=== PATIENT | female | born 2000 | race Caucasian/White ===

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

== ENCOUNTER 2020-01-14 02:01 | Outpatient (CLI) | payer MEDICAID | END 2020-01-14 02:02 | disposition EMS.NT | LOC: EMS 02:01 | PROVIDERS: ATTEND Surgery | DX: R51 Headache (principal); R06.9 Unspecified abnormalities of breathing ==

== ENCOUNTER 2020-05-11 09:03 | Outpatient (CLI) | payer MEDICAID ==
--- NOTE | 2020-05-12 08:52 | XRAY Report ---
PROCEDURE: Chest 2 View X-Ray INDICATIONS: Chest wall pain TECHNIQUE: 2 view(s) of the chest. COMPARISON: None. FINDINGS: Surgical changes and devices: None. Lungs and pleura: No pleural effusions or pneumothorax. Lungs are clear. Mediastinum: Mediastinal contours are normal. Heart size is normal. Bones and chest wall: No suspicious bony abnormalities. S-shaped scoliosis in the thoracic and lumba r spine. IMPRESSION: No acute cardiopulmonary process. Reviewed by: Bin Thornton MD on 05/11/2020 9:58 AM PDT Approved by: Bin Thornton MD on 05/11/2020 9:58 AM PDT Station ID: [id number]
== END 2020-05-11 09:04 | disposition home or self-care (01) ==
LOC: DI.WCP 09:03
PROVIDERS: ATTEND Family Medicine
DX: R07.89 Other chest pain (principal)
CPT/HCPCS: 71046

== ENCOUNTER 2020-09-28 16:25 | Outpatient (CLI) | payer MEDICAID | END 2020-09-28 23:59 | disposition home or self-care (01) | LOC: LAB.N 16:25 | PROVIDERS: ATTEND Family Medicine | DX: R05 Cough (principal); Z20.828 Contact with and (suspected) exposure to other viral communicable diseases | CPT/HCPCS: 87275; 87276 ==

== ENCOUNTER 2020-10-19 10:54 | Outpatient (CLI) | payer MEDICAID ==
--- NOTE | 2020-10-19 17:19 | XRAY Report ---
PROCEDURE: Spine Scoliosis Study 2-3V INDICATIONS: SCOLIOSIS TECHNIQUE: Frontal and lateral standing views of the spine acquired. COMPARISON: None. FINDINGS: There is rightward curvature of the thoracic spine measuring approximately 25 degrees. Bone morphology: No developmental anomalies of the ribs or spine. 12 pairs of ribs are noted. 5 no nrib-bearing lumbar vertebrae are present. No suspicious bony lesions. IMPRESSION: Rightward thoracic curvature as above. Reviewed by: Ibeth Peoples MD on 10/19/2020 5:17 PM [facility] Approved by: Ibeth Peoples MD on 10/19/2020 5:17 PM [facility] Station ID: [id number]
== END 2020-10-19 10:55 | disposition home or self-care (01) ==
LOC: DI 10:54
PROVIDERS: ATTEND Physician Assistant
DX: M41.9 Scoliosis, unspecified (principal)

== ENCOUNTER 2020-12-11 10:04 | Emergency (ER) | payer MEDICAID ==
[2020-12-11 10:10] VITALS: BP 118/68
--- NOTE | 2020-12-11 10:15 | ED Physician Documentation ---
PD HPI OPHTHO - Stated complaint Stated Complaint: LT EYE SWELLING - Chief complaint Chief Complaint: Heent - History obtained from History obtained from: Patient - History of Present Illness Timing - onset: How many days ago (2) Timing - duration: Days (2) Timing - details: Gradual onset, Still present (worse today despite doing warm moist compresses.) Location: Left (upper eyelid) Associated symptoms: Redness, Swelling. 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 : None HEENT: None Psych: Depression, Anxiety Musculoskeletal: Scoliosis Derm: None - Past Surgical History Past Surgical History: No - Present Medications Home Medications: Ambulatory Orders Medication Instructions Recorded Confirmed Amitriptyline [Elavil] 1 tab PO DAILY 12/11/20 12/11/20 Aripiprazole [Abilify] 1 tab PO DAILY 12/11/20 12/11/20 Doxycycline Hyclate 100 mg PO BID #10 12/11/20 Erythromycin Base [Erythromycin 1 applic OP QID #3.5 gm 12/11/20 Ophthalmic Ointment] - Allergies Allergies/Adverse Reactions: Allergies Allergy/AdvReac Type Severity Reaction Status Date / Time No Known Drug Allergies Allergy Verified 12/11/20 10:10 - Social History Does the pt smoke?: No Smoking Status: Never smoker Does the pt drink ETOH?: No Does the pt have substance abuse?: Yes - Immunizations Immunizations are current?: Yes - POLST Patient has POLST: No PD ED PE NORMAL - Vitals Vital signs reviewed: Yes - General General: Alert and oriented X 3, No acute distress, Well developed/nourished - HEENT HEENT: PERRL, EOMI (left upper eyelid with redness and swelling of much of the upper eyelid, with point of swelling at margin of lid. ), Ears normal, Moist mucous membranes, Pharynx benign - Neck Neck: Supple, no meningeal sign, No adenopathy - Cardiac Cardiac: RRR, No murmur Results - Vitals Vitals: Vital Signs - 24 hr 12/11/20 10:08 Temperature 36.1 C L Heart Rate 95 Respiratory 18 Rate Blood Pressure 118/68 O2 Saturation 100 Oxygen O2 Source Room air Departure - Departure Disposition: 01 Home, Self Care Clinical Impression: Hordeolum externum (stye) Qualifiers: Laterality: left Eyelid: upper Qualified Code(s): H00.014 - Hordeolum externum left upper eyelid Condition: Stable Record reviewed to determine appropriate education?: Yes Instructions: ED Hordeolum Follow-Up: RENÉE CHERRY PA-C [Primary Care Provider] - Prescriptions: Doxycycline Hyclate 100 mg PO BID #10 Erythromycin Base [Erythromycin Ophthalmic Ointment] 1 applic OP QID #3.5 gm Comments: Continue the warm compresses to promote drainage from the clogged gland. You can use the antibiotic ointment topically at the eyelid. Also oral antibiotic doxycycline twice daily. This should resolve over the next several days. Tylenol or ibuprofen if needed for pains. It is okay to resume work as this is not contagious like "pinkeye" but is more a contained gland infection. Forms: Activity restrictions Discharge Date/Time: 12/11/20 10:30
[2020-12-11] MEDS ORDERED: DOXYCYCLINE 100 MG TABLET PO STA (10:23)
[2020-12-11] MEDS ORDERED: ERYTHROMYCIN OPHTH OINT 1 GM TUBE LEFTEYE STA (10:23)
== END 2020-12-11 10:30 | disposition home or self-care (01) ==
LOC: ED 10:04
DX: H00.014 Hordeolum externum left upper eyelid (principal)
CPT/HCPCS: 99282; 99284; A9270; J3490

== ENCOUNTER 2022-07-24 16:01 | Emergency (ER) | payer OTHER, MEDICAID ==
--- NOTE | 2022-07-24 16:42 | ED Physician Documentation ---
PD HPI FEMALE - Stated complaint Stated Complaint: FEMALE - Chief complaint Chief Complaint: Abd Pain - History obtained from History obtained from: Patient - Additional information Additional information: Patient is a 22-year-old female presenting for evaluation of pelvic pain that is been intermittent over the past 2 weeks but recently worsening. It is located more to the right Pelvis. Nothing makes it better or worse. It is cramping and sharp in nature.She had an IUD placed in November. She did call her PCP today and they directed her to the emergency department regarding her pelvic pain.She has been spotting in the last few days. She has had intermittent periods since The IUD was placed. She has had some vaginal discharge but denies concerns for sexually transmitted infections.She also reports having mild epigastric pain. Review of Systems Constitutional: denies: Fever Nose: denies: Congestion Cardiac: denies: Chest pain / pressure Respiratory: denies: Dyspnea GI: reports: Abdominal Pain. 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 : None HEENT: None Psych: Depression, Anxiety Musculoskeletal: Scoliosis Derm: None - Past Surgical History Past Surgical History: No - Present Medications Home Medications: Ambulatory Orders Medication Instructions Recorded Confirmed Escitalopram [Lexapro] 10 mg PO DAILY 07/24/22 07/24/22 hydrOXYzine HCL [Hydroxyzine HCl] 25 mg PO DAILY PM 07/24/22 07/24/22 - Allergies Allergies/Adverse Reactions: Allergies Allergy/AdvReac Type Severity Reaction Status Date / Time No Known Drug Allergies Allergy Verified 07/24/22 16:18 - Social History Does the pt smoke?: No Smoking Status: Never smoker Does the pt drink ETOH?: No Does the pt have substance abuse?: Yes - Immunizations Immunizations are current?: Yes - POLST Patient has POLST: No PD ED PE NORMAL - General General: Alert and oriented X 3, No acute distress, Well developed/nourished - HEENT HEENT: Atraumatic, Moist mucous membranes - Neck Neck: Supple, no meningeal sign - Cardiac Cardiac: RRR, Strong equal pulses - Respiratory Respiratory: No respiratory distress, Clear bilaterally - Abdomen Abdomen: Normal bowel sounds, Soft, Non distended, Other (Mild epigastric tenderness) - Female Female : Clinical Project Assistant present (Leeann tach), Other (Normal external exam, normal-appearing cervix with small amount of clear/yellow vaginal discharge And blood coming from cervical os, IUD strings are visible extruding from the os, no CMT, mild right adnexal tenderness, no masses or fullness) - Derm Derm: Warm and dry - Extremities Extremities: No edema Results - Vitals Vitals: Vital Signs - 24 hr 07/24/22 07/24/22 16:11 18:07 Temperature 36.6 C 36.7 C Heart Rate 70 65 Respiratory 16 16 Rate Blood Pressure 127/79 117/74 O2 Saturation 100 100 Oxygen O2 Source Room air - Labs Labs: Laboratory Tests 07/24/22 07/24/22 07/24/22 16:00 16:40 16:40 WBC RBC Hgb Hct MCV MCH MCHC RDW Plt Count MPV Neut # (Auto) Lymph # (Auto) [place] # (Auto) Eos # (Auto) Baso # (Auto) Absolute Nucleated RBC Nucleated RBC % Sodium Potassium Chloride Carbon Dioxide Anion Gap BUN Creatinine Estimated GFR (MDRD) Glucose Calcium Total Bilirubin AST ALT Alkaline Phosphatase Total Protein Albumin Globulin Albumin/Globulin Ratio Lipase Urine Color YELLOW Urine Clarity CLEAR Urine pH 7.0 Ur Specific [place] 1.010 Urine Protein NEGATIVE Urine Glucose (UA) NEGATIVE Urine Ketones NEGATIVE Urine Occult Blood SMALL H Urine Nitrite NEGATIVE Urine Bilirubin NEGATIVE Urine Urobilinogen 0.2 (NORMAL) Ur Leukocyte Esterase NEGATIVE Urine RBC 6-10 H Urine WBC 0-3 Ur Squamous Epith Cells RARE Squamous Urine Bacteria Rare Urine Sperm PRESENT Ur Microscopic Review INDICATED Urine Culture Comments NOT INDICATED Urine HCG, Qual NEGATIVE C. glabrata (PCR) NEGATIVE C. krusei (PCR) NEGATIVE Mattie species DNA NEGATIVE Chlam trachomat DNA PCR NEGATIVE N.gonorrhoeae DNA (PCR) NEGATIVE T. vaginalis (PCR) NEGATIVE TNP Bact Vaginosis (PCR) NEGATIVE 07/24/22 07/24/22 16:50 16:50 WBC 5.7 RBC 4.24 Hgb 12.5 Hct 39.2 MCV 92.5 MCH 29.5 MCHC 31.9 L RDW 12.1 Plt Count 168 MPV 11.1 H Neut # (Auto) 3.1 Lymph # (Auto) 1.9 [place] # (Auto) 0.5 Eos # (Auto) 0.1 Baso # (Auto) 0.0 Absolute Nucleated RBC 0.00 Nucleated RBC % 0.0 Sodium 137 Potassium 3.9 Chloride 105 Carbon Dioxide 24 Anion Gap 8.0 BUN 13 Creatinine 0.6 Estimated GFR (MDRD) 125 Glucose 93 Calcium 9.6 Total Bilirubin 0.7 AST 15 ALT 13 Alkaline Phosphatase 68 Total Protein 7.4 Albumin 4.0 Globulin 3.4 Albumin/Globulin Ratio 1.2 Lipase 31 Urine Color Urine Clarity Urine pH Ur Specific [place] Urine Protein Urine Glucose (UA) Urine Ketones Urine Occult Blood Urine Nitrite Urine Bilirubin Urine Urobilinogen Ur Leukocyte Esterase Urine RBC Urine WBC Ur Squamous Epith Cells Urine Bacteria Urine Sperm Ur Microscopic Review Urine Culture Comments Urine HCG, Qual C. glabrata (PCR) C. krusei (PCR) Mattie species DNA Chlam trachomat DNA PCR N.gonorrhoeae DNA (PCR) T. vaginalis (PCR) Bact Vaginosis (PCR) PD MEDICAL DECISION MAKING - ED course Complexity details: reviewed results, re-evaluated patient, d/w patient ED course: Patient presenting for intermittent pelvic pain for the last 2 weeks. Overall her abdominal and pelvic exams are unremarkable with mild amount of tenderness i n the right adnexa but no masses or fullness.No CMT Or signs of PID.She is not and her urine appears negative for infection. Ultrasound was also obtained to evaluate her ovaries. There is no signs of torsion and the clinical suspicion is very low for torsion as she is very comfortable appearing. However there is a small right hemorrhagic cyst which I did discuss with the patient. She is aware of need for follow-up.Patient is aware that her vaginal swabs are pending and if they are abnormal I will notify her tomorrow. 1751 - Per U/S Tech - No torsion, patient has small right hemorrhagic cyst, IUD in position. Reviewed results with patient. Discussed need for follow-up regarding her cyst.She declined need for pain medication. Departure - Departure Disposition: 01 Home, Self Care Clinical Impression: Pelvic pain in female, Right ovarian cyst Condition: Stable Instructions: ED Cyst Ovarian Comments: You were evaluated For intermittent pelvic pain. Your IUD appears to be in place and I was able to see the strings from your cervix.Your labs are reassuring and your urine is negative for infection. Pelvic swabs were also obtained and are pending. We will notify you of any abnormalities.Your ultraso und shows a small right Ovarian cyst. I would recommend the use of anti- inflammatories such as ibuprofen as needed for pain. I would also recommend follow-up with your primary care doctor. If you have any worsening symptoms please consider return to the ER. Discharge Date/Time: 07/24/22 18:07
[2022-07-24 16:58] LABS: BASOPHILS % (AUTO) 0.5 %; EOSINOPHILS # (AUTO) 0.1 10^3/uL (0.0-0.7); EOSINOPHILS % (AUTO) 2.3 %; HCT - HEMATOCRIT 39.2 % (37.0-47.0); HGB - HEMOGLOBIN 12.5 g/dL (12.0-16.0); LYMPHOCYTES # (AUTO) 1.9 10^3/uL (1.5-3.5); LYMPHOCYTES % (AUTO) 33.7 %; MEAN CORPUSCULAR HEMOGLOBIN 29.5 pg (27.0-31.0); MEAN CORPUSCULAR HGB CONC 31.9 g/dL (32.0-36.0); MEAN CORPUSCULAR VOLUME 92.5 fL (81.0-99.0); MEAN PLATELET VOLUME 11.1 fL (7.9-10.8); MONOCYTES # (AUTO) 0.5 10^3/uL (0.0-1.0); MONOCYTES % (AUTO) 8.6 %; NEUTROPHILS # (AUTO) 3.1 10^3/uL (1.5-6.6); NEUTROPHILS % (AUTO) 54.7 %; PLT - PLATELET COUNT 168 10^3/uL (130-450); RED BLOOD COUNT 4.24 10^6/uL (4.20-5.40); RED CELL DISTRIBUTION WIDTH 12.1 % (12.0-15.0); WHITE BLOOD COUNT 5.7 x10^3/uL (4.8-10.8)
[2022-07-24 17:09] LABS: BILIRUBIN,URINE NEGATIVE (NEGATIVE); GLUCOSE, URINE (UA) NEGATIVE (NEGATIVE); KETONES,URINE (UA) NEGATIVE (NEGATIVE); LEUKOCYTE ESTERASE, URINE NEGATIVE (NEGATIVE); NITRITE,URINE NEGATIVE (NEGATIVE); OCCULT BLOOD,URINE SMALL (NEGATIVE); PROTEIN,URINE NEGATIVE (NEGATIVE); UROBILINOGEN,URINE 0.2 (NORMAL) E.U./dL (NORMAL)
[2022-07-24 17:11] LABS: CLARITY,URINE CLEAR (CLEAR)
[2022-07-24 17:12] LABS: HCG UR QUAL NEGATIVE
[2022-07-24 17:13] LABS: ALBUMIN/GLOBULIN RATIO 1.2 (1.0-2.2); BILIRUBIN,TOTAL 0.7 mg/dL (0.2-1.0); CALCIUM 9.6 mg/dL (8.5-10.3); CREATININE 0.6 mg/dL (0.4-1.0); POTASSIUM 3.9 mmol/L (3.5-5.0); TOTAL PROTEIN 7.4 g/dL (6.7-8.2)
[2022-07-24 17:17] LABS: BACTERIA,URINE Rare /HPF (None Seen); SQUAMOUS EPITHELIAL CELL,UR RARE Squamous (<= Few); WBC,URINE 0-3 /HPF (0-5)
[2022-07-24 17:18] LABS: SPERM,URINE PRESENT
[2022-07-24 18:09] VITALS: BP 117/74
--- NOTE | 2022-07-24 18:37 | Ultrasound Report ---
PROCEDURE: Pelvic w/Doppler Limited INDICATIONS: Right adnexal pain TECHNIQUE: Real-time transabdominal scanning was performed of the pelvic organs, with image documentation. Dopp ler interrogation was performed of the ovaries bilaterally. COMPARISON: None. FINDINGS: Uterus: Uterus is anteverted and normal in size at 7.7 x 3.0 x 4.6 cm. Endometrium measures 5 mm in combined thickness. An IUD is visualized within the endometrial cavity. Ovaries: Right ovary measures 3.0 x 1.9 x 3.9 cm. Right ovarian volume measures 11.8 mL. There is a corticated right ovarian cyst measuring 2.3 x 1.2 x 2.5 cm left ovary measures 2.1 x 1.7 x 2.2 cm wit h ovarian volume of 4.1 mL. Normal appearing arterial and venous waveforms are confirmed to each ovar y.] Normal vascular waveforms are noted in the bilateral ovaries. Other: No free pelvic fluid. IMPRESSION: Pelvic ultrasound without evidence for ovarian torsion. Intrauterine device visualized within the endometrial cavity. A 2.5cm, located right ovarian cyst possibly representing a hemorrhagic cyst. Follow-up pelvic ultras ound in 6-12 weeks to document stability versus resolution. Reviewed by: Indio Khoury MD on 07/24/2022 6:36 PM PDT Approved by: Indio Khoury MD on 07/24/2022 6:36 PM PDT Station ID: [id number]
[2022-07-24 18:49] LABS: BACTERIAL VAGINOSIS DNA NEGATIVE (NEGATIVE); CANDIDA GLABRATA DNA NEGATIVE (NEGATIVE); CANDIDA GROUP DNA NEGATIVE (NEGATIVE); CANDIDA KRUSEI DNA NEGATIVE (NEGATIVE); TRICHOMONAS VAGINALIS DNA NEGATIVE (NEGATIVE)
[2022-07-24 23:32] LABS: CHLAMYDIA TRACHOMATIS DNA NEGATIVE (NEGATIVE); NEISSERIA GONORRHOEAE DNA NEGATIVE (NEGATIVE)
== END 2022-07-24 18:07 | disposition home or self-care (01) ==
LOC: ED 16:01
DX: N83.201 Unspecified ovarian cyst, right side (principal)
CPT/HCPCS: 36415; 80053; 81001; 81003; 81025; 81514; 83690; 85025; 87086; 87491; 87591; 87661; 93976; 99282; 99284

== ENCOUNTER 2022-09-04 11:29 | Outpatient (CLI) | payer OTHER, MEDICAID ==
--- NOTE | 2022-09-04 14:40 | Ultrasound Report ---
PROCEDURE: Pelvic w/Transvaginal INDICATIONS: RIGHT SIDE OVARIAN CYST TECHNIQUE: Real-time scanning was performed of the pelvic organs, with image documentation. Additional endovagi nal scanning was necessary due to incomplete visualization of the adnexal and endometrial structures by transabdominal scanning. COMPARISON: 07/24/2022. FINDINGS: Uterus: Uterus is anteverted and normal in size at 7.6 x 4.6 x 3.0 cm. The myometrium is homogeneou s. The endometrium measures 3.8 mm in combined thickness. An IUD is in place and in correct positio n. Ovaries: The right ovary measures 2.6 x 1.9 x 1.9 cm, with a calculated ovarian volume of 4.8 cc. T he left ovary measures 3.6 x 2.0 x 2.4 cm, with a calculated ovarian volume of 9.1 cc. The ovaries h ave a normal sonographic appearance. Less than 12 follicles can be seen in each ovary. Bilateral physiological ovarian cysts are present the cyst on the right measuring 1.1 cm in maximal d imension previously measuring 2.5 cm in maximal dimension. The cyst on the left measuring 1.5 cm in m aximal dimension and is new. Other: No pathologic free abdominal or pelvic fluid. IMPRESSION: 1. Interval decrease in size and previously noted right-sided ovarian cyst today measuring 1.1 cm in maximal dimension previously measuring 2.5 cm in maximal dimension. 2. New physiologic 1.1 cm right ovarian cyst. 3. IUD placement uterus which appears to be positioned correctly., Reviewed by: Oscar Kaiser MD on 09/04/2022 2:38 PM PST Approved by: Oscar Kaiser MD on 09/04/2022 2:38 PM PST Station ID: [id number]
== END 2022-09-04 11:30 | disposition home or self-care (01) ==
LOC: DI 11:29
PROVIDERS: ATTEND Nurse Practitioner
DX: N83.291 Other ovarian cyst, right side (principal); N83.292 Other ovarian cyst, left side; Z97.5 Presence of (intrauterine) contraceptive device

== ENCOUNTER 2023-01-04 01:42 | Outpatient (CLI) | payer OTHER, MEDICAID | END 2023-01-04 01:43 | disposition critical access hospital (66) | LOC: EMS 01:42 | DX: R45.851 Suicidal ideations (principal) | CPT/HCPCS: A0425; A0429 ==

== ENCOUNTER 2023-01-04 01:57 | Emergency (ER) | payer OTHER, MEDICAID ==
[2023-01-04] MEDS ORDERED: OLANZapine ODT 5 MG TABLET TL ONE (02:20)
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
[2023-01-04 02:39] LABS: MUDS CUTOFF CONCENTRATIONS CUTOFF CONC BELOW:
[2023-01-04 02:43] LABS: BASOPHILS % (AUTO) 0.2 %; EOSINOPHILS # (AUTO) 0.2 10^3/uL (0.0-0.7); EOSINOPHILS % (AUTO) 2.2 %; HCT - HEMATOCRIT 37.4 % (37.0-47.0); HGB - HEMOGLOBIN 12.3 g/dL (12.0-16.0); LYMPHOCYTES # (AUTO) 1.3 10^3/uL (1.5-3.5); LYMPHOCYTES % (AUTO) 13.4 %; MEAN CORPUSCULAR HEMOGLOBIN 30.8 pg (27.0-31.0); MEAN CORPUSCULAR HGB CONC 32.9 g/dL (32.0-36.0); MEAN CORPUSCULAR VOLUME 93.5 fL (81.0-99.0); MEAN PLATELET VOLUME 11.3 fL (7.9-10.8); MONOCYTES # (AUTO) 0.6 10^3/uL (0.0-1.0); MONOCYTES % (AUTO) 6.1 %; NEUTROPHILS # (AUTO) 7.4 10^3/uL (1.5-6.6); NEUTROPHILS % (AUTO) 77.8 %; PLT - PLATELET COUNT 187 10^3/uL (130-450); RED CELL DISTRIBUTION WIDTH 11.5 % (12.0-15.0); WHITE BLOOD COUNT 9.5 x10^3/uL (4.8-10.8)
[2023-01-04 02:44] LABS: BILIRUBIN,URINE NEGATIVE (NEGATIVE); GLUCOSE, URINE (UA) NEGATIVE (NEGATIVE); KETONES,URINE (UA) NEGATIVE (NEGATIVE); LEUKOCYTE ESTERASE, URINE SMALL (NEGATIVE); NITRITE,URINE NEGATIVE (NEGATIVE); OCCULT BLOOD,URINE SMALL (NEGATIVE); PROTEIN,URINE NEGATIVE (NEGATIVE); UROBILINOGEN,URINE 0.2 (NORMAL) E.U./dL (NORMAL)
[2023-01-04 02:47] LABS: CLARITY,URINE HAZY (CLEAR); HCG UR QUAL NEGATIVE
[2023-01-04 02:52] LABS: BACTERIA,URINE Moderate /HPF (None Seen); RBC,URINE 0-5 /HPF (0-5); SQUAMOUS EPITHELIAL CELL,UR MOD Squamous (<= Few)
[2023-01-04 02:53] LABS: MUCUS,URINE Moderate Strands
[2023-01-04 02:54] LABS: AMPHETAMINE SCREEN,URINE NEGATIVE (NEGATIVE); BARBITURATE SCREEN,UR NEGATIVE (NEGATIVE); BENZODIAZEPINES SCREEN, URINE NEGATIVE (NEGATIVE); COCAINE SCREEN URINE NEGATIVE (NEGATIVE); METHADONE SCREEN, URINE NEGATIVE (NEGATIVE); METHAMPHETAMINES SCREEN, URINE NEGATIVE (NEGATIVE); OPIATE SCREEN, URINE NEGATIVE (NEGATIVE); OXYCODONE SCREEN, URINE NEGATIVE (NEGATIVE); PROPOXYPHENE SCREEN, URINE NEGATIVE (NEGATIVE); THC CANNABINOID SCREEN, URINE NEGATIVE (NEGATIVE); TRICYCLIC ANTIDEPRESSANT,URINE NEGATIVE (NEGATIVE)
[2023-01-04 02:55] LABS: ACETAMINOPHEN < 10 ug/mL (10-30); ALBUMIN 3.8 g/dL (3.2-5.5); ALBUMIN/GLOBULIN RATIO 1.1 (1.0-2.2); ALKALINE PHOSPHATASE 66 IU/L (42-121); ALT ALANINE AMINOTRANSFERASE 11 IU/L (10-60); AST ASPARTATE AMINOTRANSFERASE 13 IU/L (10-42); BILIRUBIN,TOTAL 0.3 mg/dL (0.2-1.0); BUN - BLOOD UREA NITROGEN 11 mg/dL (6-20); CALCIUM 8.7 mg/dL (8.5-10.3); CARBON DIOXIDE - CO2 24 mmol/L (21-32); CHLORIDE 109 mmol/L (101-111); CREATININE 0.5 mg/dL (0.4-1.0); GFR - MDRD 154 (>89); GLUCOSE 102 mg/dL (70-100); LIPASE 31 U/L (22-51); POTASSIUM 3.6 mmol/L (3.5-5.0); SALICYLATE < 6.0 mg/dL; SODIUM 139 mmol/L (135-145); TOTAL PROTEIN 7.3 g/dL (6.7-8.2)
[2023-01-04 11:06] VITALS: BP 90/51
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
[2023-01-04] MEDS ORDERED: hydrOXYzine PAMOATE 25 MG CAPSULE PO PRN (13:46)
[2023-01-04] MEDS ORDERED: DULoxetine 30 MG CAPSULE PO SCH (13:46)
[2023-01-04] MEDS ORDERED: traZODone 50 MG TABLET PO PRN (13:47)
--- NOTE | 2023-01-04 13:49 | ED Physician Documentation ---
ED Addendum - Addendum Addendum: 01/04/23 13:47 I talked with the telepsych provider who did agree the patient would be appropriate for inpatient given some high risk variables and to initiate treatment. Voluntary was good. She did suggest medications of Cymbalta 30 mg daily and could start that today. Hydroxyzine 3 times daily if needed and trazodone 50 mg at night for sleep. To put in those orders for those medications though hopefully the patient will even get transferred to a psychiatric facility today. [facility] is looking at her information and does have beds available.
[2023-01-05] MEDS ORDERED: DULoxetine 30 MG CAPSULE PO SCH (09:00)
== END 2023-01-04 17:29 ==
LOC: EDUNIT# → ED 01:57
DX: F33.2 Major depressive disorder, recurrent severe without psychotic features (principal); R45.851 Suicidal ideations; F43.21 Adjustment disorder with depressed mood; F41.9 Anxiety disorder, unspecified; Z81.8 Family history of other mental and behavioral disorders
CPT/HCPCS: 36415; 80053; 80306; 80307; 80320; 80329; 81001; 81025; 83690; 84443; 85025; 87635; 90834; 93005; 99284; 99285; A9270; Q3014; 81003; 87086